=== PATIENT | male | born 1970 | race Caucasian/White ===

== ENCOUNTER 2018-04-16 10:59 | Outpatient (RCR) | payer OTHER | END 2018-04-19 07:37 | disposition home or self-care (01) | PROVIDERS: ATTEND Nurse Practitioner Family | DX: S42.012D Anterior displaced fracture of sternal end of left clavicle, subsequent encounter for fracture with routine healing (principal) ==

== ENCOUNTER 2018-04-23 11:29 | Outpatient (RCR) | payer OTHER | END 2018-04-23 13:07 | disposition home or self-care (01) | PROVIDERS: ATTEND Nurse Practitioner Family | DX: S42.012D Anterior displaced fracture of sternal end of left clavicle, subsequent encounter for fracture with routine healing (principal) ==

== ENCOUNTER → 2021-10-03 | Outpatient (CLI) | payer OTHER ==
--- NOTE | 2021-10-03 12:39 | Diagnostic Imaging Report ---
EXAMINATION: Magnetic resonance imaging of the left shoulder without contrast. DATE: October 03, 2021. COMPARISON: Left clavicle radiographs January 14, 2018. HISTORY: 51-year-old male, left shoulder pain. TECHNIQUE: Magnetic Resonance Imaging sequences were performed of the shoulder without contrast. FINDINGS: ROTATOR CUFF, LIGAMENTS, TENDONS, AND MUSCLES: The supraspinatus, infraspinatus, teres minor, and subscapularis tendons and muscles are intact. There is normal rotator cuff muscle bulk and signal. LONG HEAD OF BICEPS: The biceps labral attachment and long head of the biceps tendon are intact. The long head of the biceps tendon is normally positioned within the bicipital groove. GLENOHUMERAL JOINT: The humeral head is well positioned relative to the glenoid. There is a posterior labral tear extending from approximately the 11 o'clock position of the posterior superior labrum to the 7 o'clock position of the posterior inferior labrum. There is a small paralabral cyst along the length of the labral tear with a craniocaudal extent of 33 mm and axial dimensional measurement of approximately 2 x 3 mm. The articular cartilage is without identified defect. There is no glenohumeral joint effusion. ACROMIOCLAVICULAR JOINT: The acromioclavicular joint is normally aligned. The coracoclavicular and coracoacromial ligaments are intact. There are no degenerative changes of the acromioclavicular joint. BONE: There is no os acromiale. There is no Hill-Sachs deformity. There is no acute fracture, bone contusion, or evidence of osteonecrosis. There is artifact relating to hardware at the level of the left clavicle. BURSAE AND SOFT TISSUES: Bursal and additional soft tissue assessment is unremarkable. IMPRESSION: 1. Tear along the majority of the length of the posterior labrum with associated paralabral cyst along the length of the labral tear. No identified glenohumeral cartilage defect or glenohumeral joint effusion. 2. Intact rotator cuff and proximal long head of biceps tendon. 3. Intact acromioclavicular joint. 4. Hardware related artifact at the level of the clavicle. No identified acute fracture, bone contusion, or other notable bone marrow signal abnormality. Dictated by: Dictated on workstation # [id number]
== END ==
LOC: RAD 14:45
PROVIDERS: ATTEND Family Medicine
DX: S43.431A Superior glenoid labrum lesion of right shoulder, initial encounter (principal); S43.491A Other sprain of right shoulder joint, initial encounter; X58.XXXA Exposure to other specified factors, initial encounter
CPT/HCPCS: 73221

== ENCOUNTER 2022-07-30 05:34 | Outpatient (CLI) | payer OTHER ==
[~2022-07-30] VITALS: Ht 172.7 cm; Wt 79.5 kg
== END 2022-07-30 11:38 | disposition home or self-care (01) ==
LOC: PREOP 05:34
PROVIDERS: ATTEND Internal Medicine
DX: Z01.818 Encounter for other preprocedural examination (principal)

== ENCOUNTER 2022-08-01 09:52 | Day surgery (SDC) | payer OTHER ==
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
[~2022-08-01] VITALS: Ht 172 cm; Wt 79.5 kg
[2022-08-01] MEDS ORDERED: LACTATED RINGERS 1,000 ML IV STA (09:54)
--- NOTE | 2022-08-01 10:09 | Pre-Op Note & Conscious Sedat ---
Pre-Operative Progress Note Date H&P Reviewed: Aug 01, 2022 Time H&P Reviewed: 10:08 History & Physical: H&P Reviewed, Patient Examed, No changes noted Pre-Op Diagnosis: screening Conscious Sedation Pre-Proced ASA Score 1 For ASA 3 and 4: Consider anesthesia and medical clearance. Also, for patients with a history of failed moderate sedation consider anesthesia. Airway Lungs Heart ASA score ASA 1: a normal healthy patient ASA 2: a patient with a mild systemic disease (mid diabetes, controlled hypertension, obesity ASA 3: a patient with a severe systemic disease that limits activity (angina, COPD, prior Myocardial infarction) ASA 4: a patient with an incapacitating disease that is a constant threat to life (CHF, renal failure) ASA 5: a moribund patient not expected to survive 24 hrs. (ruptured aneurysm) ASA 6: a declared brain- patient whose organs are being harvested. For emergent operations, add the letter E after the classification Mallampati Classification Grade 2 Sedation Plan Analgesia, Amnesia, Plan communicated to team members, Discussed options with patient/fam, Discussed risks with patient/fam The patient is an appropriate candidate to undergo the planned procedure, sedation, and anesthesia. The patient immediately re-assessed prior to indication. FUNMI LAZCANO MD Aug 01, 2022 10:09
[2022-08-01 10:15] VITALS: BP 129/102
[2022-08-01 11:14] VITALS: BP 111/75
--- NOTE | 2022-08-01 11:14 | Progress Note-Post Operative ---
Post-Procedure Note Physician (s)/Head Rose Grower (s) Physician FUNMI LAZCANO MD Pre-Procedure Diagnosis Pre-Procedure Diagnosis: screening Post-Procedure Diagnosis Post-operative diagnosis: Prior to undergoing colonoscopy digital rectal evaluation was performed. Anal sphincter tone was normal and the perianal reflexes intact. Prostate is unremarkable digital inspection as well as the anal canal and distal rectal vault. The colonoscope was then inserted into the rectum and under direct visualization advanced the cecum. The cecum was identified by identification of the ileocecal valve and the cecal strap. Photographic documentation was obtained. A careful inspection was made as the colonoscope was withdrawn. Quality the prep was good. Findings: There are no evidence for internal or external hemorrhoids in the rectum sigmoid colon descending colon splenic flexure transverse colon hepatic flexure ascending colon and cecum were unremarkable under good prep conditions. Would advocate consideration for repeat screening colonoscopy in 10 years. FUNMI LAZCANO MD Aug 01, 2022 11:14
[2022-08-01 11:18] VITALS: BP 106/68
[2022-08-01 11:20] VITALS: BP 109/73
[2022-08-01 11:40] VITALS: BP 117/88
--- NOTE | 2022-08-01 14:51 | Anesthesia-General Post-Op ---
MAC Patient Condition Mental Status/LOC: Same as Preop Cardiovascular: Satisfactory Nausea/Vomiting: Absent Respiratory: Satisfactory Pain: Controlled Complications: Absent Post Op Complications Complications None Follow Up Care/Instructions Patient Instructions None needed. Anesthesiology Discharge Order Discharge Order Patient was doing well after the procedure with no complaints, stable vital signs, no apparent adverse anesthesia problems. No complications reported per nursing. EZRA WHALEY DO Aug 01, 2022 14:51
== END 2022-08-01 11:50 | disposition home or self-care (01) ==
LOC: ENDO 09:52
PROVIDERS: ATTEND Internal Medicine
DX: Z12.11 Encounter for screening for malignant neoplasm of colon (principal); F17.290 Nicotine dependence, other tobacco product, uncomplicated

== ENCOUNTER → 2022-09-22 | Outpatient (CLI) | payer OTHER ==
--- NOTE | 2022-09-22 11:20 | Diagnostic Imaging Report ---
PROCEDURE: MR imaging cervical spine without contrast. TECHNIQUE: Multiplanar, multisequence MR imaging of the cervical spine was performed without contrast. INDICATION: Left-sided neck pain COMPARISON: None IMPRESSION: Straightening of the cervical lordosis. No acute compression fracture. No marrow replacement process. Mild multilevel disc height loss and disc desiccation. Normal appearance of the cervical spinal cord. The vertebral artery flow voids are maintained. The visualized soft tissues of the neck are normal. C3-C4: Disc osteophyte complex. Uncovertebral and facet arthropathy. No significant spinal canal narrowing. Mild bilateral neural foraminal narrowing. C4-C5: Disc osteophyte complex. Uncovertebral and facet arthropathy. Mild spinal canal narrowing. Mild bilateral neural foraminal narrowing. C5-C6: Disc osteophyte complex causing mass effect on the left aspect of the spinal cord causing moderate spinal canal stenosis. Uncovertebral and facet arthropathy. Moderate right and mild left neural foraminal narrowing. C6-C7: Disc osteophyte complex. Uncovertebral and facet arthropathy. No significant spinal canal narrowing. Mild left neural foraminal narrowing. No right neural foraminal narrowing. C7-T1: Disc bulge. Mild facet arthropathy. No significant spinal canal narrowing. Mild left neural foraminal narrowing. No right neural foraminal narrowing. IMPRESSION: Multilevel degenerative changes of the cervical spine described level by level above, worst at C5-C6 with disc osteophyte complex causing mass effect the left aspect of the spinal cord and moderate spinal canal stenosis. Dictated by: Dictated on workstation # [id number]
== END ==
LOC: RAD 14:45
PROVIDERS: ATTEND Family Medicine
DX: M25.78 Osteophyte, vertebrae (principal); M47.812 Spondylosis without myelopathy or radiculopathy, cervical region; M47.813 Spondylosis without myelopathy or radiculopathy, cervicothoracic region; M48.02 Spinal stenosis, cervical region; M50.23 Other cervical disc displacement, cervicothoracic region
CPT/HCPCS: 72141